=== PATIENT | male | born 1990 | race Caucasian/White ===

== ENCOUNTER 2016-09-24 14:53 | Observation (INO) ==
--- OUTSIDE RECORDS SUMMARY | 2016-09-24 15:08 | External Medical Summary | Continuity of Care Document ---
:1990 Author Organization [facility] Medications Problems Procedures Results Encounters ACCT Visit Discharge Status Pt. Type Provider Facility Loc./Unit Complaint No. Date/Time [id number] 05/14/2016 05/14/2016 DIS Outpatient [id number] 14:24:24 14:24:24 [id number] 02/03/2016 02/03/2016 DIS Outpatient [id number] 11:02:20 11:02:21 [id number] 02/03/2016 02/03/2016 DIS Outpatient [id number] 11:02:15 11:02:16 [id number] 02/03/2016 02/03/2016 DIS Outpatient [id number] 11:00:26 11:00:27 [id number] 02/03/2016 02/03/2016 DIS Outpatient [id number] 11:00:07 11:00:08 [id number] 02/03/2016 02/03/2016 DIS Outpatient [id number] 11:00:01 11:00:02 [id number] 02/03/2016 02/03/2016 DIS Outpatient [id number] 10:59:47 10:59:48 [id number] 02/03/2016 02/03/2016 DIS Outpatient [id number] 10:56:57 10:56:58 [id number]
--- OUTSIDE RECORDS SUMMARY | 2016-09-24 15:08 | External Medical Summary ---
:1990 Author Organization eClinicalWorks Care Team Providers Name Role Phone Jaguar Esqueda Provider Role Unavailable Allergies, Adverse Reactions, Alerts Substance Reaction Event Type Cefadroxil Info Not Available Drug Allergy augmentin Info Not Available Non Drug Allergy Problems Problem Type Condition Code Onset Dates Condition Status Problem Asthma 493.90 Active Problem Other malaise and fatigue 780.79 Active Problem Anxiety and depression 300.00 Active Assessment Other malaise and fatigue 780.79 Active Assessment Anxiety and depression 300.00 Active Medications Medication Code System Code Instructions Start End Date Status Dosage Date Sertraline HCl [facility] 99283-005 100 MG Orally Jan 08 tablet 0-05 Once a day 2014 Procedures Procedure Coding System Code Date OFFICE VISITEST PT CPT-4 88959 Jan 08, 2015 Vital Signs Date/Time: Jan 08, 2015 Blood Pressure Systolic 130 mm Hg Height 68 in Weight 166 lbs BMI 25.24 Index Cardiac Monitoring Heart Rate 70 /min Blood Pressure Diastolic 85 mm Hg Results No Known Results Summary Purpose eClinicalWorks Submission
--- OUTSIDE RECORDS SUMMARY | 2016-09-24 15:08 | External Medical Summary ---
:1990 Author Organization eClinicalWorks Care Team Providers Name Role Phone Jaguar Esqueda Provider Role Unavailable Allergies, Adverse Reactions, Alerts Substance Reaction Event Type Cefadroxil Info Not Available Drug Allergy augmentin Info Not Available Non Drug Allergy Problems Problem Type Condition ICD-9 Code Onset Dates Condition Status Problem Asthma 493.90 Active Problem Other malaise and fatigue 780.79 Active Problem Anxiety and depression 300.00 Active Assessment Other malaise and fatigue 780.79 Active Assessment Anxiety and depression 300.00 Active Medications Medication Code System Code Instructions Start End Date Status Dosage Date Sertraline HCl [facility] [address]-020 50 MG Orally Once Nov 13, 1 tablet 3-13 a day 2014 Procedures Procedure Coding System Code Date COMP PROFILE CPT-4 30347 Nov 13, 2014 T4 CPT-4 17994 Nov 13, 2014 CBC CPT-4 21805 Nov 13, 2014 OFFICE VISITEST PT CPT-4 71665 Nov 13, 2014 TSH CPT-4 63379 Nov 13, 2014 Vital Signs Date/Time: Nov 13, 2014 Blood Pressure Systolic 125 mm Hg Height 68 in Weight 170 lbs BMI 25.85 Index Cardiac Monitoring Heart Rate 68 /min Blood Pressure Diastolic 76 mm Hg Results Name Result Date Reference Range Unit Abnormality Flag CBC Summary Purpose eClinicalWorks Submission
--- OUTSIDE RECORDS SUMMARY | 2016-09-24 15:08 | External Medical Summary ---
:1990 Author Organization eClinicalWorks Care Team Providers Name Role Phone Jaguar Esqueda Provider Role Unavailable Allergies, Adverse Reactions, Alerts Substance Reaction Event Type Cefadroxil Info Not Available Drug Allergy augmentin Info Not Available Non Drug Allergy Problems Problem Type Condition Code Onset Dates Condition Status Problem Asthma J45.909 Active Problem Other malaise R53.81 Active Problem Anxiety state F41.1 Active Problem Depression F32.9 Active Assessment Acute pharyngitis J02.9 Active Medications Medication Code System Code Instructions Start End Date Status Dosage Date Zithromax Z-Nathaniel [facility] [address] 250 MG Orally June 19, 2 tablet 0-75 Once a day 2015 on the first day, then 1 tablet daily for 4 days Sertraline HCl [facility] [address] 100 MG Orally Jan 08, 1 tablet 0-05 Once a day 2014 Procedures Procedure Coding System Code Date OFFICE VISITEST PT CPT-4 51950 June 20, 2015 Vital Signs Date/Time: June 20, 2015 Blood Pressure Systolic 128 mm Hg Height 68 in Weight 161 lbs BMI 24.48 Index Cardiac Monitoring Heart Rate 68 /min Blood Pressure Diastolic 80 mm Hg Results No Known Results Summary Purpose eClinicalWorks Submission
[2016-09-24] MEDS ORDERED: NS 1,000 ML IV ONE (15:33)
--- NOTE | 2016-09-24 15:54 | Emergency Department Report ---
Altered Mental Status HPI - General Chief Complaint: Altered Mental Status Stated Complaint: Lethargic Time Seen by Provider: 09/24/16 14:59 Source: patient, police Mode of arrival: ambulatory Limitations: altered mental status - History of Present Illness HPI narrative: Paul is a 26 year old gentleman who is brought to ER by EMS and police [place] [address] [place]. Patient's truck reportedly not damaged. Patient was found to have an altered mental status initially. EMS arrived on scene and en route patient was given a dose of Narcan. Upon arrival in ED, patient was alert and coherent, revealing recently becoming fired from his job at [email or web address] several weeks ago and he his and has three daughters. He reports paying bills and stashing money on the side to feed his opiate addiction. Indicates long history of opiate abuse starting as a young man when his mother gave him a Lortab for some abdominal pain and he enjoyed the high it gave him. Reports taking at least two Percocet 7.5mg tabs today and also drinking vodka today at 10 am prior to an unemployment hearing he went to in [place]. states became overwhelmed with everything going on and "had to get away" driving from [facility] and ended up in [place]. Remembers driving erratically but initially is not able to identify what caused him to drive that way. Denies suicidal attempt today but states he has tried to end his life in the past with an extension cord hanging that broke. States to midlevel provider "i would be happy to end my life" but I have a family to take care of and I don' t want to do that to them. Denies homicidal ideation today with the erratic driving indicating he would never take someone's life by his mistakes. Verbalizes no prior psych hospitalizations but having long history of depression and taking Zoloft which he feels is bogus. History of abusing Xanax he reports. Tearful and emotional the entire intake with this APRN. PATTEN complaint: altered mental status Onset (ago): minute(s) (30) Consistency of symptoms: waxing and waning Context: alcohol abuse, drug abuse Associated symptoms: denies other symptoms Treatments prior to arrival: other (narcan) - Related Data Home Medications Medication Instructions Recorded Confirmed Oxycodone HCl/Acetaminophen 1 each PO QID PRN 09/24/16 09/24/16 [Percocet 7.5-325 mg Tablet] Allergies Allergy/AdvReac Type Severity Reaction Status Date / Time No Known Allergies Allergy Verified 09/24/16 16:27 Review of Systems All systems: reviewed and negative except as stated Constitutional: Denies: fever Cardiovascular: Denies: chest pain Respiratory: Denies: dyspnea Gastrointestinal: Denies: abdominal pain, nausea, vomiting Psychiatric: Denies: depression [facility] Patient Stated Medical History Asthma Yes Depression Yes Substance Use Disorder Yes Family History: [facility] significant for opiate abuse Father -cancer - Social History Smoking status: Current every day smoker Substance use type: opiates, painkillers Substance last used: hours (ago) (2) Alcohol intake frequency: 3 or more drinks per day Last drink: just [employer] Household members: spouse, children Current occupational status: previously employed Physical Exam - Head Head exam: atraumatic, normocephalic - Eye Eye exam: Present: normal appearance, PERRL, conjunctival injection, nystagmus. Absent: scleral icterus, periorbital swelling - ENT ENT exam: Present: normal exam, normal oropharynx, mucous membranes dry - Neck Neck exam: Present: normal inspection, full ROM, trachea midline. Absent: tenderness - Chest Chest inspection: Present: normal inspection - Respiratory Respiratory exam: Present: normal lung sounds bilaterally. Absent: respiratory distress - Cardiovascular Cardiovascular exam: Present: regular rate, normal rhythm - Abdominal Exam Abdominal exam: Present: soft. Absent: distention, tenderness - Extremities Exam Extremities exam: Present: normal inspection, full ROM - Skin Skin exam: Present: warm, dry, intact - Neurological Exam Neurological exam: Present: alert, oriented X3 - Psychiatric Psychiatric exam: Present: depressed, suicidal ideation Course Course Narrative: 1645- o2 sats 86% on room air. Patient in and out of sleep. O2 applied at 2 liters. Sats mid 90s. - Consultations Consultation #1: Hospitalist Time: 17:20 (return call at 1745-admit obs ccu) Vital Signs Temperature 98.8 F 09/24/16 15:12 Pulse Rate 104 H 09/24/16 15:12 Respiratory Rate 18 09/24/16 15:12 Blood Pressure 135/71 09/24/16 15:12 Pulse Oximetry 94 09/24/16 15:12 Temperature 98.8 F 09/24/16 15:12 Pulse Rate 104 H 09/24/16 15:12 Respiratory Rate 18 09/24/16 15:12 Blood Pressure 135/71 09/24/16 15:12 Pulse Oximetry 94 09/24/16 15:12 Altered Mental Status - MDM Narrative Medical decision making narrative: intoxicated with etoh and known opiates. elev acetaminophen level with unknown ingestion. do not know where patient sits in nomogram. psych unable to screen with intoxication. pt with suicidal statement given in ER. Will admit to hospitalist service CCU observation. - Differential Diagnosis Likely: alcoholic intoxication - Lab Data Attestation: I reviewed the patient's lab results. Result diagrams: 09/24/16 15:39 09/24/16 16:15 Lab Results 09/24/16 Range/Units 15:39 WBC 8.5 (4.5-11.0) T/MM3 RBC 5.17 (4.50-5.90) M/MM3 Hgb 15.5 (13.5-17.5) GM/DL Hct 45.6 (41-53) % MCV 88.2 (80-100) UM3 MCH 30.0 (26-34) UUG MCHC 34.0 (31-37) GM/DL RDW Std Deviation 41.7 (36.9-50.2) FL Plt Count 270 (130-400) T/MM3 MPV 11.1 (9.4-12.4) UM3 Immature Gran % (Auto) 0.1 (0.0-0.5) % Neut % (Auto) 56.2 (33-66) % Lymph % (Auto) 36.9 (23-45) % [place] % (Auto) 5.0 (0-9.0) % Eos % (Auto) 1.2 (0-4) % Baso % (Auto) 0.6 (0-2) % Neut # 4.8 (1.8-7.7) T/MM3 Lymph # 3.1 (1-4.8) T/MM3 [place] # 0.4 (0-0.8) T/MM3 Eos # 0.1 (0-0.5) T/MM3 Baso # 0.1 (0-0.2) T/MM3 Abs Immat Gran (auto) 0.01 (0.00-0.03) T/MM3 - EKG Data EKG #1 EKG attestation: Yes: I reviewed and interpreted this EKG. EKG shows normal: sinus rhythm Rhythm: NSR [place]/QRS: normal Interpretation: no acute changes Critical Care Time Critical Care Time: No Disposition Clinical Impression: Intoxication with opioids, Alcohol intoxication, Suicidal behavior, Hypoxia Disposition: 02 To OBS [facility] Prescriptions: No Action Oxycodone HCl/Acetaminophen [Percocet 7.5-325 mg Tablet] 1 each PO QID PRN PRN Reason: Pain - Seen By: midlevel
--- NOTE | 2016-09-24 18:57 | History & Physical Report ---
History of Present Illness Date: 09/24/16 Chief complaint: lethargy HPI: This is a 26-year-old male brought in by the police after being found in his car confused swerving in traffic. 1 Narcan was given the patient became more responsive and was brought in for further evaluation. At that point he admitted to having suicidal ideations. At this time, he states that if he was truly going to kill himself he would do it at home in his garage away from society. He admits to taking pills. He also gives history of intermittent episodes of confusion particularly at night when going to bed. He is recently lost his job and this is contributed to his depression and anxiety. He denies any fever chills or night sweats. He denies any chest pain shortness of breath nausea vomiting or diaphoresis. He denies any abdominal pain diarrhea constipation blood in stools or dark tarry stools. He denies any dysuria or hematuria. Review of Systems All systems: reviewed and no additional remarkable complaints except as stated PFSH Patient Stated Medical History Asthma Yes Depression Yes Substance Use Disorder Yes Family History: Father of a malignant schwannoma - Social History Smoking status: Current every day smoker Alcohol intake: current Current occupational status: unemployed Medications Home Medications Medication Instructions Recorded Confirmed Type Oxycodone HCl/Acetaminophen 1 each PO QID PRN 09/24/16 09/24/16 History [Percocet 7.5-325 mg Tablet] Allergies Allergy/AdvReac Type Severity Reaction Status Date / Time No Known Allergies Allergy Verified 09/24/16 16:27 Exam Vital Signs: Temperature 98.8 F 09/24/16 15:12 Pulse Rate 104 H 09/24/16 15:12 Respiratory Rate 18 09/24/16 15:12 Blood Pressure 135/71 09/24/16 15:12 Pulse Oximetry 94 09/24/16 15:12 Oxygen Delivery Method Room Air Gen.-he is lethargic but arousable in no acute distress. He dozes off when answering questions but is easily awoken and responds appropriately. HEENT-PERRLA EOMI Cardiovascular-regular rate and rhythm Lungs-clear to auscultation bilaterally Abdomen-benign Extremities-no edema cyanosis or clubbing Neurological-lethargic. Cranial nerves II through XII grossly intact. Rectal-deferred Genitourinary-deferred Skin-warm dry and intact without any evidence of rashes Psychiatric-patient gives a vague suicidal references. Height: 5 ft 8 in Weight: 77.111 kg Results - Labs CBC & Chem 7: 09/24/16 15:39 09/24/16 16:15 Assessment and Plan (1) Alcohol intoxication Current visit: Yes Status: Acute Patient admits to having an alcohol problem. We will monitor for delirium tremens. 09/24/16 18:58 (2) Intoxication with opioids Current visit: Yes Status: Acute We will monitor for any evidence of withdrawals. Given his elevated Tylenol level we will repeat a level and give antidote if necessary. 09/24/16 18:58 (3) Suicidal behavior Current visit: Yes Status: Acute We'll consult psychiatry. He will be admitted under observation for suicide precautions. 09/24/16 18:59 Hospital Course Summary Disclaimer: The visit summary below is not to be considered part of the above Progress Note.
[2016-09-24] MEDS ORDERED: ONDANSETRON 4 MG/2 ML INJECTION IVP PRN (19:19)
[2016-09-24 19:21] VITALS: BMI 27.6
[2016-09-24] MEDS: SALINE FLUSH 10ml SYRINGE IVF PRN ×2 (20:21→23:59)
[2016-09-24] MEDS: 1/2 NS 1,000 ML IV SCH (21:17)
[2016-09-24] MEDS ORDERED: KETOROLAC 15 MG/ML INJECTION IVP PRN (23:50)
[2016-09-25] MEDS: 1/2 NS 1,000 ML IV SCH (15:22)
[2016-09-25 16:09] VITALS: BP 161/87; TEMP 99
--- NOTE | 2016-09-25 17:56 | Discharge Instructions ---
Discharge Plan - Med Rec/Dispo Prescriptions: Continue Albuterol Inhaler [Ventolin Hfa] 2 puff ORAL INH Q4H PRN PRN Reason: Asthma Oxycodone HCl/Acetaminophen [Percocet 7.5-325 mg Tablet] 1 each PO QID PRN PRN Reason: Pain Discharge Instructions/Outpatient Orders: Final Provider Discharge Instructions Location: Determined By Patient - Disposition 01 Discharged Home, Self-Care
--- NOTE | 2016-09-25 18:00 | Discharge Summary ---
Discharge Information Date of admission: 09/24/16 17:50 Attending Physician: Shahana Gross MD Primary care physician: Jaguar Esqueda MD Consults: 09/25/16 10:23 Physician Consult [CONS] Routine Consulting Provider: Anusha Gaines Reason For Exam: suicidal ideation Ordering Provider has Notified Municipal Services Manager: Yes Comment: [facility] unit notified - Discharge Diagnosis (1) Alcohol intoxication Status: Resolved (2) Intoxication with opioids Status: Resolved (3) Suicidal behavior Status: Resolved - Laboratory Labs: 09/25/16 05:20 09/25/16 05:20 History of Present Illness HPI: This is a 26-year-old male brought in by the police after being found in his car confused swerving in traffic. 1 Narcan was given the patient became more responsive and was brought in for further evaluation. At that point he admitted to having suicidal ideations. At this time, he states that if he was truly going to kill himself he would do it at home in his garage away from society. He admits to taking pills. He also gives history of intermittent episodes of confusion particularly at night when going to bed. He is recently lost his job and this is contributed to his depression and anxiety. He denies any fever chills or night sweats. He denies any chest pain shortness of breath nausea vomiting or diaphoresis. He denies any abdominal pain diarrhea constipation blood in stools or dark tarry stools. He denies any dysuria or hematuria. Objective Vital signs: Temperature 99.0 F 09/25/16 16:00 Pulse Rate 68 09/25/16 16:07 Respiratory Rate 22 09/25/16 16:07 Blood Pressure 161/87 H 09/25/16 16:07 Pulse Oximetry 97 09/25/16 16:07 Oxygen Delivery Method Room Air Oriented 3, in no acute distress HEENT-PERRLA EOMI Neck-supple no JVD no bruits Cardiovascular-regular rate and rhythm Lungs-clear to auscultation bilaterally Abdomen-benign Extremities-no edema cyanosis or clubbing Neurological-nonfocal Psychiatric-patient denies any suicidal or homicidal ideations. He denies any audio, visual or tactile hallucinations. Height: 5 ft 8 in Weight: 82.6 kg Body Mass Index: 27.6 Hospital Course This is a 26-year-old male who was admitted to the hospital for polysubstance intoxication and vague suicidal ideations. He has no recollection of the event or the hospitalization. He denies any suicidal ideations at this time. He was seen by psychiatry and they feel that he is not a harm to himself or others. He's been advised to stop with the heavy use of narcotics and alcohol. Case was discussed with his and children in the room. Once again, he contracts to safety and denies suicidal ideations. Time spent with patient: 25 - 35 minutes Discharge Plan - Med Rec/Dispo Prescriptions: Continue Albuterol Inhaler [Ventolin Hfa] 2 puff ORAL INH Q4H PRN PRN Reason: Asthma Oxycodone HCl/Acetaminophen [Percocet 7.5-325 mg Tablet] 1 each PO QID PRN PRN Reason: Pain Discharge Instructions/Outpatient Orders: Final Provider Discharge Instructions Location: Determined By Patient - Disposition 01 Discharged Home, Self-Care
[2016-09-25 18:08] VITALS: PULSE 66; RESP 19; O2SAT 98
--- NOTE | 2016-09-25 20:05 | Neuropsychiatric Consult ---
[facility] HPI Date: 09/25/16 Reason for Consultation: Confusion Start Time: 18:00 Stop Time: 18:30 History of Present Illness: HPI: 26 y/o CM admitted to ICU for confusion. Pt reportedly was driving erratically and picked up by police and brought to the hospital. Pt's UDS was positive for opiates and benzos and he was confused and angry on admission. There was some concern for S/I and so psych was consulted. On face to face the pt was pleasant and cooperative. He states he is not sure what happened or why he is here. He states he was not trying to harm himself and would not harm himself due to his family. He states he feels back to his baseline. STRESSORS: Currently unemployed. PSYCH ROS: Pt reports his mood is fairly stable. He reports sleeping well and having a good appetite. Denies S/I. He reports some anxiety at times but states it is mild. Denies vidal or psychosis. PAST PSYCH: Pt states he has been seen by a psychiatrist in the past and has been on antidepressants but did not feel they were helpful. He denies ever trying to harm himself and has never been in a psych hospital. SUBSTANCE ABUSE: Pt minimizes substance abuse. He states he does not remember using opiates or benzos and is not sure how they got there. He denies any substance abuse hx. COLLATERAL: Spoke with patients who is supportive. She states she does not believe he is a danger to himself or others and feels he is safe for D/C. 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 Household members: spouse Current occupational status: unemployed Review of Systems All systems: reviewed and no additional remarkable complaints except as stated Mental Status Exam Vitals: Last Vital Signs Temp 99.0 F 09/25/16 16:00 Pulse 66 09/25/16 17:00 Resp 19 09/25/16 17:00 BP 161/87 H 09/25/16 16:07 Pulse Ox 98 09/25/16 17:00 Height: 1.73 m Weight: 82.6 kg - Mental Status Exam Muscle Strength/Tone: Normal Dressing: Casual Grooming: Good Attitude: Cooperative Motor Activity: Normal Eye Contact: Good Speech: Normal Volume: Normal Rhythm: Appropriate Rhythm Orientation: Oriented X4 Mood: Euthymic Affect: Bright Rate of Thoughts: Appropriate Rate Thought Organization: Organized Associations: Intact Abstract Reasoning: Intact, able to abstract Computation: Intact Thought Content: Normal Perception/Psychotic: Perception Normal Language: Naming Intact Fund of Knowledge: Appropriate Memory: Grossly Intact Suicidal Ideation: Denies Homicidal Ideation: Denies Insight: Limited Judgement: Good Impulse Control: Good - Laboratory Result Diagrams: 09/25/16 05:20 09/25/16 05:20 Laboratory Results - last 24 hr 09/24/16 09/24/16 09/24/16 19:56 23:42 23:42 WBC RBC Hgb Hct MCV MCH MCHC RDW Std Deviation Plt Count MPV Immature Gran % (Auto) Neut % (Auto) Lymph % (Auto) [place] % (Auto) Eos % (Auto) Baso % (Auto) Neut # Lymph # [place] # Eos # Baso # Abs Immat Gran (auto) Turbidity Sodium Potassium Chloride Carbon Dioxide Anion Gap BUN Creatinine GFR Calculation BUN/Creatinine Ratio Glucose Calculated Osmolality Calcium Magnesium Total Bilirubin Icterus Index AST ALT Alkaline Phosphatase Total Protein Albumin Globulin Albumin/Globulin Ratio Specimen Hemolysis Urine Opiates Screen Positive Ur Oxycodone Screen Positive Urine Methadone Screen Negative Ur Propoxyphene Screen Negative Acetaminophen 22 Ur Barbiturates Screen Negative U Tricyclic Antidepress Negative Ur Phencyclidine Scrn Negative Ur Amphetamines Screen Negative U Methamphetamines Scrn Negative U Benzodiazepines Scrn Positive Urine Cocaine Screen Negative U Cannabinoids Screen Negative Ur Drug Screen Confirm Sent out 09/25/16 09/25/16 05:20 05:20 WBC 5.7 RBC 4.57 Hgb 13.7 D Hct 41.3 MCV 90.4 MCH 30.0 MCHC 33.2 RDW Std Deviation 43.0 Plt Count 198 MPV 10.8 Immature Gran % (Auto) 0.2 Neut % (Auto) 46.4 Lymph % (Auto) 41.2 [place] % (Auto) 8.1 Eos % (Auto) 3.9 Baso % (Auto) 0.2 Neut # 2.6 Lymph # 2.3 [place] # 0.5 Eos # 0.2 Baso # 0.0 Abs Immat Gran (auto) 0.01 Turbidity < 20 Sodium 139 D Potassium 4.0 Chloride 104 Carbon Dioxide 27 Anion Gap 8 BUN 13.0 Creatinine 0.8 GFR Calculation 118 BUN/Creatinine Ratio 16 Glucose 80 Calculated Osmolality 267 Calcium 9.2 Magnesium 2.0 Total Bilirubin 1.00 Icterus Index < 2 AST 26 ALT 38 Alkaline Phosphatase 81 Total Protein 6.5 Albumin 4.3 Globulin 2.2 L Albumin/Globulin Ratio 2.0 Specimen Hemolysis < 15 Urine Opiates Screen Ur Oxycodone Screen Urine Methadone Screen Ur Propoxyphene Screen Acetaminophen Ur Barbiturates Screen U Tricyclic Antidepress Ur Phencyclidine Scrn Ur Amphetamines Screen U Methamphetamines Scrn U Benzodiazepines Scrn Urine Cocaine Screen U Cannabinoids Screen Ur Drug Screen Confirm Assessment and Plan (1) Adjustment disorder Status: Acute Discharge pt home when medically stable.
== END 2016-09-25 18:25 | disposition home or self-care (01) ==
LOC: CCU 14:53 → ED 14:53 → CCU 19:18
PROVIDERS: ADMIT Internal Medicine; ATTEND Internal Medicine